=== PATIENT | female | born 1970 | race Caucasian/White ===

== ENCOUNTER → 2016-06-11 | Outpatient (CLI) | payer BC ==
--- NOTE | 2016-06-11 11:06 | MM ---
Reason for exam: screening (asymptomatic). Last mammogram was performed 2 years and 5 months ago. History: Family history of breast cancer in aunt. Took hormonal contraceptives for 16 years. Physical Findings: A clinical breast exam by your physician is recommended on an annual basis and results should be correlated with mammographic findings. MG Screening Mammo w CAD Bilateral CC and MLO view(s) were taken. Prior study comparison: January 11, 2014, bilateral MG screening mammo w CAD. August 03, 2010, bilateral digital screening mammo w/CAD. There are scattered fibroglandular densities. Finding: There are few typically benign round calcifications in the left breast. There is no discrete abnormality. ASSESSMENT: Benign, BI-RAD 2 RECOMMENDATION: Routine screening mammogram of both breasts in 1 year.
== END | disposition home or self-care (01) ==
LOC: RADMAMWWP 07:17
PROVIDERS: ATTEND Family Medicine
DX: Z12.31 Encounter for screening mammogram for malignant neoplasm of breast (principal)

== ENCOUNTER → 2017-11-13 | Outpatient (CLI) | payer BC ==
--- NOTE | 2017-11-14 11:28 | MM ---
Reason for exam: screening (asymptomatic). Last mammogram was performed 1 year and 5 months ago. History: Patient is postmenopausal. Family history of breast cancer in aunt. Took hormonal contraceptives for 16 years. Physical Findings: A clinical breast exam by your physician is recommended on an annual basis and results should be correlated with mammographic findings. MG 3D Screening Mammo W/Cad Bilateral CC, MLO, and XCCL view(s) were taken. Prior study comparison: June 11, 2016, bilateral MG screening mammo w CAD. January 11, 2014, bilateral MG screening mammo w CAD. The breast tissue is almost entirely fat. No significant changes when compared with prior studies. ASSESSMENT: Negative, BI-RAD 1 RECOMMENDATION: Routine screening mammogram of both breasts in 1 year.
== END | disposition home or self-care (01) ==
LOC: RADMAMWWP 07:00
PROVIDERS: ATTEND Family Medicine
DX: Z12.31 Encounter for screening mammogram for malignant neoplasm of breast (principal)
CPT/HCPCS: 77063; 77067

== ENCOUNTER → 2018-12-10 | Outpatient (CLI) | payer BC ==
--- NOTE | 2018-12-11 12:23 | MM ---
Reason for exam: screening (asymptomatic). Last mammogram was performed 1 year and 1 month ago. History: Patient is postmenopausal. Family history of breast cancer in aunt. Took hormonal contraceptives for 16 years. Physical Findings: A clinical breast exam by your physician is recommended on an annual basis and results should be correlated with mammographic findings. MG Screening Mammo w CAD Bilateral CC and MLO view(s) were taken. Prior study comparison: November 13, 2017, bilateral MG 3d screening mammo w/cad. June 11, 2016, bilateral MG screening mammo w CAD. There are scattered fibroglandular densities. Finding: There are stable fine, grouped/clustered calcifications in the upper outer quadrant, posterior position of the left breast. ASSESSMENT: Incomplete: need additional imaging evaluation, BI-RAD 0 RECOMMENDATION: Special view mammogram of the left breast. [facility] will attempt to contact patient to return for supplemental views.
== END | disposition home or self-care (01) ==
LOC: RADMAMWWP 13:57
PROVIDERS: ATTEND Family Medicine
DX: Z12.31 Encounter for screening mammogram for malignant neoplasm of breast (principal)
CPT/HCPCS: 77067

== ENCOUNTER → 2018-12-19 | Outpatient (CLI) | payer BC ==
--- NOTE | 2018-12-19 11:45 | MM ---
Reason for exam: additional evaluation requested from abnormal screening. Last mammogram was performed less than 1 month ago. History: Patient is postmenopausal. Family history of breast cancer in aunt. Took hormonal contraceptives for 16 years. Physical Findings: Nurse did not find any significant physical abnormalities on exam. MG Work Up Mamm w CAD LT CC with magnification, ML with magnification, and ML view(s) were taken of the left breast. Prior study comparison: December 10, 2018, bilateral MG screening mammo w CAD. November 13, 2017, bilateral MG 3d screening mammo w/cad. There are scattered fibroglandular densities. There is a 6mm left upper outer quadrant posterior depth group of calcifications similar to 2018 and seen on the MLO view CC view from 2017. 6 month follow up left mammogram recommended. If positive biopsy would be recommended at that time. These results were verbally communicated with the patient and result sheet given to the patient on 12/19/18. ASSESSMENT: Probably benign, BI-RAD 3 RECOMMENDATION: Follow-up diagnostic mammogram of the left breast in 6 months. (mag views)
== END ==
LOC: RADMAMWWP 10:23
PROVIDERS: ATTEND Family Medicine
DX: R92.8 Other abnormal and inconclusive findings on diagnostic imaging of breast (principal)
CPT/HCPCS: 77065

== ENCOUNTER → 2019-07-20 | Outpatient (CLI) | payer BC ==
--- NOTE | 2019-07-21 10:12 | MM ---
Reason for exam: follow-up at short interval from prior study. Last mammogram was performed 7 months ago. History: Patient is postmenopausal. Family history of breast cancer in aunt. Took hormonal contraceptives for 16 years. Physical Findings: Nurse did not find any significant physical abnormalities on exam. MG 3D Diag Mammo W/Cad LT CC and MLO view(s) were taken of the left breast. Prior study comparison: December 19, 2018, left breast MG work up mamm w CAD LT. December 10, 2018, bilateral MG screening mammo w CAD. There are scattered fibroglandular densities. Faint grouped calcifications upper outer quadrant unchanged for 8 months. These results were verbally communicated with the patient and result sheet given to the patient on 07/20/19. ASSESSMENT: Probably benign, BI-RAD 3 RECOMMENDATION: Follow-up diagnostic mammogram of both breasts in 4 months. (left 1 year follow up, right annual exam)
== END | disposition home or self-care (01) ==
LOC: RADMAMWWP 10:36
PROVIDERS: ATTEND Family Medicine
DX: R92.8 Other abnormal and inconclusive findings on diagnostic imaging of breast (principal)
CPT/HCPCS: 77061; 77065

== ENCOUNTER → 2020-04-25 | Outpatient (CLI) | payer BC ==
--- NOTE | 2020-04-25 14:35 | MM ---
Reason for exam: additional evaluation requested from prior study. Last mammogram was performed 9 months ago. History: Patient is postmenopausal. Family history of breast cancer in aunt. Took hormonal contraceptives for 16 years. Physical Findings: Nurse did not find any significant physical abnormalities on exam. MG 3D Diag Mammo W/Cad YAZMIN Bilateral CC and MLO view(s) were taken. Prior study comparison: July 20, 2019, left breast MG 3d diag mammo w/cad LT. December 19, 2018, left breast MG work up mamm w CAD LT. There are scattered fibroglandular densities. No significant new findings when compared with previous films. These results were verbally communicated with the patient and result sheet given to the patient on 04/25/20. ASSESSMENT: Negative, BI-RAD 1 RECOMMENDATION: Routine screening mammogram of both breasts in 1 year.
== END | disposition home or self-care (01) ==
LOC: RADMAMWWP 12:49
PROVIDERS: ATTEND Family Medicine
DX: R92.8 Other abnormal and inconclusive findings on diagnostic imaging of breast (principal)
CPT/HCPCS: 77062; 77066

== ENCOUNTER → 2022-05-29 | Outpatient (CLI) | payer BC ==
--- NOTE | 2022-05-29 10:04 | MM ---
Reason for Exam: Screening (asymptomatic). Last screening mammogram was performed 12 month(s) ago. Patient History: Menarche at age 8. First Full-Term at age 24. Postmenopausal. Patient has history of breast feeding. Hormonal Contraceptives for 16 years until age 40. Maternal aunt had breast cancer. Risk Values: Carissa 5 year model risk: 1.3%. NCI Lifetime model risk: 10.3%. Prior Study Comparison: 07/20/2019 Left Diagnostic Mammogram, [facility]. 04/25/2020 Bilateral Diagnostic Mammogram, [facility]. 05/25/2021 Bilateral Screening Mammogram, [facility]. Tissue Density: The breast tissue is heterogeneously dense. This may lower the sensitivity of mammography. Findings: Analyzed By CAD. There is no suspicious group of microcalcifications or new suspicious mass in either breast. Overall Assessment: Negative, BI-RAD 1 Management: Screening Mammogram of both breasts in 1 year. A clinical breast exam by your physician is recommended on an annual basis and results should be correlated with mammographic findings. Electronically signed and approved by: Ferdinand Duran M.D. Radiologis
== END | disposition home or self-care (01) ==
LOC: RADMAMWWP 07:12
PROVIDERS: ATTEND Family Medicine
DX: Z12.31 Encounter for screening mammogram for malignant neoplasm of breast (principal); Z78.0 Asymptomatic menopausal state; Z80.3 Family history of malignant neoplasm of breast
CPT/HCPCS: 77063; 77067

== ENCOUNTER → 2023-07-02 | Outpatient (CLI) | payer BC ==
--- NOTE | 2023-07-02 20:34 | MM ---
Reason for Exam: Screening (asymptomatic). Last mammogram was performed 1 year(s) and 1 month(s) ago. Patient History: Menarche at age 8. First Full-Term at age 24. Postmenopausal. Patient has history of breast feeding. Hormonal Contraceptives for 16 years until age 40. Maternal aunt had breast cancer. Risk Values: Carissa 5 year model risk: 1.4%. NCI Lifetime model risk: 9.9%. Prior Study Comparison: 04/25/2020 Bilateral Diagnostic Mammogram, [facility]. 05/25/2021 Bilateral Screening Mammogram, [facility]. 05/29/2022 Bilateral MG 3D screening mammo w/cad, [facility]. Tissue Density: There are scattered areas of fibroglandular density. Findings: Analyzed By CAD. Unchanged grouped calcifications posterior outer aspect of the left breast. There is no suspicious group of microcalcifications or new suspicious mass in either breast. Overall Assessment: Benign, BI-RAD 2 Management: Screening Mammogram of both breasts in 1 year. . Patient should continue monthly self-breast exams. A clinical breast exam by your physician is recommended on an annual basis. This exam should not preclude additional follow-up of suspicious palpable abnormalities. Note on Carissa scores and lifetime risk: 1. A Carissa score greater than 3% is considered moderate risk. If this is the case, consider specialist referral to assess eligibility for a risk reducing agent. 2. If overall lifetime risk for the development of breast cancer is 20% or higher, the patient may qualify for future screening with alternating mammogram and breast MRI. Electronically signed and approved by: Sharon Duckworth M.D. Radiologist
== END | disposition home or self-care (01) ==
LOC: RADMAMWWP 07:26
PROVIDERS: ATTEND Family Medicine
DX: Z12.31 Encounter for screening mammogram for malignant neoplasm of breast (principal); Z78.0 Asymptomatic menopausal state; Z80.3 Family history of malignant neoplasm of breast
CPT/HCPCS: 77063; 77067

== ENCOUNTER → 2024-07-02 | Outpatient (CLI) | payer BC ==
--- NOTE | 2024-07-02 08:36 | MM ---
Reason for Exam: Screening (asymptomatic). Last screening mammogram was performed 12 month(s) ago. Patient History: Menarche at age 8. First Full-Term at age 24. Postmenopausal. Patient has history of breast feeding. Hormonal Contraceptives for 16 years until age 40. Maternal aunt had breast cancer. Risk Values: Carissa 5 year model risk: 1.5%. NCI Lifetime model risk: 9.7%. Prior Study Comparison: 05/25/2021 Bilateral Screening Mammogram, [facility]. 05/29/2022 Bilateral MG 3D screening mammo w/cad, [facility]. 07/02/2023 Bilateral MG 3D screening mammo w/cad, [facility]. Tissue Density: There are scattered areas of fibroglandular density. Findings: Analyzed By CAD. There are scattered and grouped benign-appearing round calcifications in the bilateral breasts redemonstrated. Benign-appearing bilateral axillary lymph nodes are again seen. There is no suspicious new group of microcalcifications or new suspicious mass in either breast. Overall Assessment: Benign, BI-RAD 2 Management: Screening Mammogram of both breasts in 1 year. . Patient should continue monthly self-breast exams. A clinical breast exam by your physician is recommended on an annual basis. This exam should not preclude additional follow-up of suspicious palpable abnormalities. Note on Carissa scores and lifetime risk: 1. A Carissa score greater than 3% is considered moderate risk. If this is the case, consider specialist referral to assess eligibility for a risk reducing agent. 2. If overall lifetime risk for the development of breast cancer is 20% or higher, the patient may qualify for future screening with alternating mammogram and breast MRI. [facility], , 07/02/2024 7:50 AM. Electronically signed and approved by: Hong Elizabeth M.D.
== END | disposition home or self-care (01) ==
LOC: RADMAMWWP 07:01
PROVIDERS: ATTEND Family Medicine
DX: Z12.39 Encounter for other screening for malignant neoplasm of breast (principal); R92.323 Mammographic fibroglandular density, bilateral breasts; Z78.0 Asymptomatic menopausal state; Z80.3 Family history of malignant neoplasm of breast
CPT/HCPCS: 77063; 77067